=== PATIENT | female | born 1990 | race African-American/Black ===

== ENCOUNTER 2020-06-08 18:46 | Emergency (ER) | payer SELFPAY ==
[~2020-06-08] VITALS: Ht 177.8 cm; Wt 90.9 kg
[2020-06-08 19:38] LABS: HEMATOCRIT 38.3 % (37.0-47.0); HEMOGLOBIN 12.2 g/dl (12.0-16.0); IMMATURE GRANULOCYTES 0.3 % (0.0-5.0); MEAN CELL VOLUME 86.5 fL CALC (80.0-100.0); MEAN CORPUSCULAR HGB 27.5 pG CALC (26.0-32.0); MEAN CORPUSCULAR HGB CONC 31.9 g/dL CAL (32.0-36.0); NEUT# 5.15 thou/uL (2.00-7.15); RED BLOOD COUNT 4.43 mill/uL (4.20-5.60); RED CELL DISTRI WIDTH 12.8 % (11.5-15.5)
[2020-06-08 19:41] LABS: URINE BILIRUBIN - DIPSTICK NEGATIVE (NEGATIVE); URINE BLOOD DIPSTICK LARGE (NEGATIVE); URINE COLOR YELLOW; URINE GLUCOSE - DIPSTICK NEGATIVE (NEGATIVE); URINE KETONE TRACE mg/dL (NEGATIVE); URINE LEUK ESTERASE NEGATIVE (NEGATIVE); URINE NITRITE - DIPSTICK NEGATIVE (Negative); URINE PH 6.5 (4.5-8.0); URINE PROTEIN - DIPSTICK NEGATIVE (NEG-TRACE); URINE SPECIFIC GRAVITY >=1.030; URINE UROBILINOGEN - DIPSTICK 0.2 E.U./dL (0.2)
[2020-06-08 19:52] LABS: URINE SQUAMOUS EPITHELIAL CELL FEW EPI/hpf (0-FEW); URINE WBC 0-2 WBC/hpf (0-5)
[2020-06-08 19:56] LABS: ALBUMIN 3.9 g/dL (3.2-5.0); ALKALINE PHOSPHATASE 53 u/l (38-126); ANION GAP 11 (6-22 (CALC)); BILIRUBIN, TOTAL 0.3 mg/dL (0.0-1.4); BUN 10 mg/dL (7-17); BUN/CREATININE RATIO 13 (12-20 (CALC)); CARBON DIOXIDE 22 mmol/l (22-30); CHLORIDE 108 mmol/l (95-108); CREATININE 0.8 mg/dL (0.5-1.0); GFR > 60 ML/MIN (>=60 (CALC)); GFR FOR AFR.AMER. > 60 ML/MIN (>=60 (CALC)); POTASSIUM 3.9 mmol/l (3.5-5.1); SGOT/AST 21 u/l (14-36); SODIUM 137 mmol/l (137-146); TOTAL PROTEIN 6.8 g/dL (6.3-8.2)
[2020-06-08] MEDS ORDERED: TAM75CAP PO (20:39)
[2020-06-08] MEDS ORDERED: MEDDOSEPAK PO (20:39)
[2020-06-08] MEDS ORDERED: [UNRECOGNIZED DRUG - OTHER] OS (20:41)
[2020-06-08 20:55] VITALS: BP 105/63
== END 2020-06-08 21:09 | disposition home or self-care (01) | DRG 74 ==
LOC: ED 18:46
PROVIDERS: Emergency Medicine
DX: G51.0 Bell's palsy (principal); J10.1 Influenza due to other identified influenza virus with other respiratory manifestations; Z20.822 Contact with and (suspected) exposure to COVID-19

== ENCOUNTER 2023-11-13 21:00 | Emergency (ER) | payer SELFPAY ==
[~2023-11-13] VITALS: Ht 180.3 cm; Wt 90.0 kg
[~2023-11-13 21:00] MED LIST: MEDDOSEPAK PO; TAM75CAP PO; [UNRECOGNIZED DRUG - OTHER] OS
[2023-11-13] MEDS ORDERED: TAM75CAP PO (22:44)
[2023-11-13 23:12] VITALS: BP 110/82
== END 2023-11-13 23:13 | disposition home or self-care (01) | DRG 195 ==
LOC: ED 21:00
DX: J10.1 Influenza due to other identified influenza virus with other respiratory manifestations (principal); Z20.822 Contact with and (suspected) exposure to COVID-19